=== PATIENT | female | born 1970 | race Hispanic/Latino ===

== ENCOUNTER 2019-07-14 09:56 | Outpatient (CLI) | payer OTHER ==
--- NOTE | 2019-07-14 10:54 | MMO ---
Right Breast MAMMO Unilat Diag [facility] RT+[facility]ER[facility]. CLINICAL HISTORY: Patient is 48 years old and is seen for additional evaluation requested at current screening. The patient has no family history of breast cancer. The patient has no personal history of cancer. VIEWS: The views performed were: right craniocaudal with tomosynthesis; right mediolateral oblique with tomosynthesis; and right mediolateral with tomosynthesis. FILMS COMPARED: The present examination has been compared to prior imaging studies performed at [facility] on 05/24/2019 and 07/14/2019, and at [facility] on 12/31/2015 and 07/27/2017. This study has been interpreted with the assistance of computer-aided detection. MAMMOGRAM FINDINGS: The breast is extremely dense, which may lower the sensitivity of mammography. There is an equal density, oval mass with circumscribed margins seen in the right breast at 6 o'clock. Sonographic interrogation of this region demonstrates a mass that demonstrates features typical for fibroadenoma. IMPRESSION: MASS IN THE RIGHT BREAST IS PROBABLY BENIGN. FOLLOW-UP IN 6 MONTHS IS RECOMMENDED. THE RESULTS OF THIS EXAM WERE SENT TO THE PATIENT. ACR BI-RADS Category 3 - Probably benign finding - short interval follow-up suggested. [facility] will notify the patient of the need for additional imaging services. MAMMOGRAPHY NOTE: 1. A negative mammogram report should not delay a biopsy if a dominant of clinically suspicious mass is present. 2. Approximately 10% to 15% of breast cancers are not detected by mammography. 3. Adenosis and dense breasts may obscure an underlying neoplasm. Reported by: CARLOS MANUEL TOM MD Electonically Signed: [id number]
--- NOTE | 2019-07-14 12:20 | ULT ---
LIMITED RIGHT BREAST ULTRASOUND: DATE: 07/14/2019. PROVIDED CLINICAL HISTORY: Abnormal mammogram. FINDINGS: Limited sonographic interrogation is performed of the right breast in the region of mammographic conc gonzález. There is an oval, wider than tall, smoothly marginated nonshadowing mass at the 6 o'clock posit ion of the right breast measuring approximately 1.6 cm. This likely corresponds with the mammogram f inding. IMPRESSION: BIRADS category 3 - probably benign findings. Six-month followup ultrasound and diagnostic mammogram are recommended.
== END 2019-07-14 09:57 | disposition home or self-care (01) ==
LOC: BICMAMMO 09:56
PROVIDERS: ATTEND Nurse Practitioner Family
DX: R92.1 Mammographic calcification found on diagnostic imaging of breast (principal); N63.10 Unspecified lump in the right breast, unspecified quadrant
CPT/HCPCS: G0279